=== PATIENT | female | born 1995 | race Two or more races ===

== ENCOUNTER 2018-12-22 20:02 | Emergency (ER) | payer OTHER ==
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
[2018-12-22] MEDS ORDERED: ULIPRISTAL ACETATE 30 MG TAB PO ONE (22:35)
[2018-12-22] MEDS ORDERED: AZITHROMYCIN 250 MG TAB PO ONE (22:35)
[2018-12-22] MEDS ORDERED: ONDANSETRON DISINTEGRATING 4 MG TAB PO ONE (22:35)
[2018-12-23 01:55] VITALS: BP 123/84
== END 2018-12-23 02:09 | disposition home or self-care (01) ==
LOC: EEVIPCON 20:02 → SANE 12-23 02:09
DX: T76.21XA Adult sexual abuse, suspected, initial encounter (principal)
CPT/HCPCS: J0696